=== PATIENT | female | born 1970 | race Caucasian/White ===

== ENCOUNTER 2021-10-18 13:55 | Emergency (ER) | payer OTHER, SELFPAY ==
[2021-10-18 13:57] VITALS: BP 147/84; PULSE 60; RESP 14; TEMP 36.8; O2SAT 100; BMI 26.3
--- NOTE | 2021-10-18 14:28 | EX.ED.DYSGE1 ---
HPI History of Present Illness Chief Complaint: Bite Informant: patient Onset/Context/Timing Onset: Yesterday Current Severity: Mild Maximum Severity: Mild Narrative Narrative: Patient presents secondary to dog bite on her right leg. She was bit by a stray dog yesterday. She was seen at urgent care and started on antibiotics. She was encouraged to come in today to start the rabies series. PFSH PFSH Allergy/AdvReac Type Severity Reaction Status Date / Time No Known Allergies Allergy Verified 10/18/21 13:57 Social History Smoking Status: Never smoker ROS ROS ED Constitutional Constitutional ED: Denies chills or fever(s) Eyes Eyes: Denies change in vision ENT ENT ED: Denies sore throat Cardiovascular Cardiovascular: Denies chest pain Respiratory/Chest Respiratory/Chest: Denies cough or dyspnea Gastrointestinal Gastrointestinal: Denies abdominal pain, nausea or vomiting Musculoskeletal Musculoskeletal: Reports myalgias; Denies back pain Integumentary Reports other Details: Dog bite right leg ; Denies rash Neurologic Neurologic: Denies headache(s) or weakness Allergic/Immunologic Allergic/Immunologic ED: Denies urticaria EXAM Physical Exam Const Vital Signs: 10/18/21 13:57 10/18/21 14:03 Temperature 98.2 F Temperature Source Temporal Pulse Rate 60 Respiratory Rate 14 Respiratory Effort Normal Respiratory Pattern Normal Blood Pressure 147/84 H Blood Pressure Mean 105 Pulse Ox 100 Oxygen Delivery Method Room Air Positive well nourished and well developed General Appearance ED: well developed HEENT Reports moist mucous membranes Eyes PERRL and EOMs intact bilaterally Neck supple Chest Wall inspection of chest normal and palpation of chest normal Resp normal respiratory effort and clear to auscultation bilaterally Cardio regular rate and regular rhythm GI non-tender Palpation: soft Extremity Extremity Narrative: 1.5 cm flap laceration to the right anterolateral dalton. Mild surrounding ecchymosis. 2 smaller skin abrasions measuring approximately half centimeter each. Strong distal pulses with normal range of motion. Neuro oriented x3 Sensorium / Orientation: alert Psych mental status grossly normal MDM MDM MDM Narrative Medical decision making narrative: Patient agrees to the rabies vaccine series. Initial dose given here along with immunoglobulin. Patient will continue the antibiotics previously prescribed by urgent care. Return instructions given. Discharge Plan Triage Chief Complaint: Bite ED Provider: Jha,Nia Dx/Rx/DC Orders Clinical Impression: Dog bite, Rabies, need for prophylactic vaccination against Instructions: ED Dog Bite Primary Care Provider: Joe Levin Activity Restrictions/Additional Instructions: As discussed, please return on day 3, 7, and 14 to receive additional rabies shots. Disposition Disposition: Home, Self Care Discharge Date/Time: 10/18/21 14:59
[2021-10-18] MEDS: Rabies Vaccine,Human Diploid 2.5 UNITS Vial IM (14:44)
[2021-10-18] MEDS: Rabies Immune Globulin/PF 300 UNIT/ML, 5 ML VIAL 1440 UNIT IM (14:50)
== END 2021-10-18 14:59 | disposition home or self-care (01) ==
LOC: ED 14:37
PROVIDERS: Emergency Provider Emergency Medicine; PCP Family Medicine; Visit Provider Emergency Medicine
DX: S80.871A Other superficial bite, right lower leg, initial encounter (principal); W54.0XXA Bitten by dog, initial encounter; Z20.3 Contact with and (suspected) exposure to rabies
CPT/HCPCS: 90375; 90675; 96372; 99282

== ENCOUNTER 2021-10-21 15:55 | Outpatient (CLI) | payer OTHER, SELFPAY ==
[2021-10-21 15:57] VITALS: BP 127/81; PULSE 74; RESP 14; TEMP 36.6; O2SAT 94; BMI 26.6
[2021-10-21 15:59] VITALS: BP 127/81; PULSE 74; RESP 14; TEMP 36.6; O2SAT 94; BMI 26.6
[2021-10-21] MEDS: Rabies Vaccine,Human Diploid 2.5 UNITS Vial IM (16:10)
== END 2021-10-21 16:55 | disposition home or self-care (01) ==
LOC: ED 16:56
PROVIDERS: PCP Family Medicine
DX: Z23 Encounter for immunization (principal)
CPT/HCPCS: 90675; 96372

== ENCOUNTER 2021-10-25 15:39 | Outpatient (CLI) | payer OTHER, SELFPAY ==
[2021-10-25 15:42] VITALS: BP 116/72; PULSE 64; RESP 14; TEMP 36.8; O2SAT 97; BMI 26.6
[2021-10-25 15:43] VITALS: BP 116/72; PULSE 64; RESP 14; TEMP 36.8; O2SAT 97; BMI 26.6
[2021-10-25] MEDS: Rabies Vaccine,Human Diploid 2.5 UNITS Vial IM (16:27)
== END 2021-10-25 16:54 | disposition home or self-care (01) ==
LOC: ED 16:55
PROVIDERS: PCP Family Medicine; Visit Provider Emergency Medicine
DX: Z23 Encounter for immunization (principal)
CPT/HCPCS: 90675; 96372

== ENCOUNTER 2021-11-01 16:16 | Outpatient (CLI) | payer OTHER, SELFPAY ==
[2021-11-01 16:17] VITALS: BP 133/86; PULSE 80; RESP 18; TEMP 37; O2SAT 96; BMI 23.3
[2021-11-01] MEDS: Rabies Vaccine,Human Diploid 2.5 UNITS Vial IM (17:04)
== END 2021-11-01 17:52 | disposition home or self-care (01) ==
LOC: ED 17:54
PROVIDERS: PCP Family Medicine
DX: Z23 Encounter for immunization (principal)
CPT/HCPCS: 90675; 96372